=== PATIENT | female | born 1965 | race Caucasian/White ===

== ENCOUNTER 2020-08-31 06:51 | Outpatient (CLI) | payer BC, SELFPAY ==
--- NOTE | ~2020-08-31 | DEXA_ITS ---
BMD(1) Young-Adult(2) Age-Matched(3) Region (g/cm2) T-score Z-score WHO Classification L1 0.878 -2.1 -2.3 Osteopenia L2 0.983 -1.9 -2.1 Osteopenia L3 1.068 -1.2 -1.4 Osteopenia L4 1.075 -1.1 -1.3 Osteopenia L1-L4 1.007 -1.5 -1.7 Osteopenia Trend: L1-L4 Change vs Change vs Measured Age BMD(1) Baseline Previous Date (years) (g/cm2) (%) (%) 08/31/2020 55.4 1[age]007 baseline - 1 - Statistically 68% of repeat scans fall within 1SD (+- 0.010 g/cm2 for AP Spine L1-L4) 2 - [place] (Combined NHANES (ages 20-30) / [employer] (ages 20-40)) AP Spine Reference Population (v112) 3 - Matched for Age, Weight (females 25-100 kg), Ethnic 11 - World Health Organization - Definition of Osteoporosis and Osteopenia for Women: Normal = T-score at or above -1.0 SD; Osteopenia = T-score between -1.0 and -2.5 SD; Osteoporosis = T-score at or below -2.5 SD; (WHO definitions only apply when a young healthy Women reference database is used to determine T-scores.) Printed: 08/31/2020 7:32:23 AM (13.60)76:3.00:22.22:27.0 0.00:12.24 0.60x1.05 31.2:%Fat=47.3% 0.00:0.00 0.00:0.00 Verify bone is centered and there is sufficient tissue next to bone. Filename: [id number] Scan Mode: Thick;OneScan 83.0 uGy [facility] [id number] BMD(1) Young-Adult(2,7) Age-Matched(3) Region (g/cm2) T-score Z-score WHO Classification Neck Left 0.972 -0.5 -0.1 Normal Right 0.979 -0.4 -0.1 Normal Mean 0.976 -0.4 -0.1 Normal Difference 0.007 0.1 0.1 - Total Left 1.152 1.1 1.1 Normal Right 1.065 0.5 0.4 Normal Mean 1.108 0.8 0.7 Normal Difference 0.087 0.7 0.7 - Hip Hiram Length Comparison (mm) (Right = 104.1 mm) (Mean = 108.6 mm) (Left = 107.3 mm) Trend: Total Mean Change vs Change vs Measured Age BMD(1) Baseline Previous Date (years) (g/cm2) (%) (%) 08/31/2020 55.4 1.108 baseline - 1 - Statistically 68% of repeat scans fall within 1SD (+- 0.010 g/cm2 for DualFemur Total) 2 - [place] (Combined NHANES (ages 20-30) / [employer] (ages 20-40)) Femur Reference Population (v112) 3 - Matched for Age, Weight (females 25-100 kg), Ethnic 7 - DualFemur Total T-score difference is 0.7. Asymmetry is Mild. 11 - World Health Organization - Definition of Osteoporosis and Osteopenia for Women: Normal = T-score at or above -1.0 SD; Osteopenia = T-score between -1.0 and -2.5 SD; Osteoporosis = T-score at or below -2.5 SD; (WHO definitions only apply when a young healthy Women reference database is used to determine T-scores.) Printed: 08/31/2020 7:32:23 AM (13.60); Filename: [id number]; Right Femur; 23.6:%Fat=39.0%; Neck Angle (deg)= 65; Scan Mode: Standard 37.0 uGy; Left Femur; 22.5:%Fat=36.8%; Neck Angle (deg)= 69; Verify there is sufficient pelvis- shaft separation.; Scan Mode: Standard 37.0 uGy [facility] [id number] Dear Sera Esteban, Your patient Ruth Levine completed a BMD test on 08/31/2020 using the [employer] DXA System (analysis version: 13.60) manufactured by [employer]. The following summarizes the results of our evaluation. PATIENT BIOGRAPHICAL: Name: Ruth Levine
== END 2020-08-31 06:52 | disposition home or self-care (01) ==
LOC: CHSIMG 06:57
DX: Z78.0 Asymptomatic menopausal state (principal)
CPT/HCPCS: 77080